=== PATIENT | female | born 1970 | race African-American/Black ===

== ENCOUNTER 2020-05-22 14:53 | Outpatient (CLI) | payer OTHER, SELFPAY ==
--- NOTE | ~2020-05-22 | MM_ITS ---
EXAMINATION: MM screening gaurav BI w zulma HISTORY: Screening mammogram, history of right breast cancer TECHNIQUE: Craniocaudal and mediolateral oblique 3-D tomosynthesis images were obtained and synthetic 2-D images were generated. CAD analysis was submitted and interpreted. COMPARISON: 02/01/2019, 01/25/2018, 01/19/2017 BREAST PARENCHYMAL COMPOSITION: There are scattered areas of fibroglandular density. FINDINGS: There are stable lumpectomy changes in the right breast. There is no evidence of suspicious mass, calcification, or architectural distortion to suggest malignancy in either breast. There has b een no suspicious interval change. IMPRESSION: 1. No mammographic evidence of malignancy. 2. Recommend routine screening mammography in one year. BI-RADS Category 2: Benign finding(s). Reviewed, dictated and finalized at location A. Y LAUNDERING INVESTIGATOR
== END 2020-05-22 14:54 | disposition home or self-care (01) ==
LOC: ANHIMG 14:56
PROVIDERS: PCP Physician Assistant; Visit Provider Physician Assistant
DX: Z12.31 Encounter for screening mammogram for malignant neoplasm of breast (principal)
CPT/HCPCS: 77063; 77067

== ENCOUNTER 2020-05-23 11:11 | Outpatient (CLI) | payer OTHER, SELFPAY ==
--- NOTE | ~2020-05-23 | US_ITS ---
EXAMINATION: US breast RT limited HISTORY: Pain in the upper outer quadrant and at the 6:00 location of the right breast. TECHNIQUE: Targeted right breast ultrasound is performed. COMPARISON: 08/27/2016 FINDINGS: There is no evidence of focal abnormal cystic or solid mass in the vicinity of the patient' s breast pain. Again noted are sonographic changes related to prior lumpectomy at the 10:00 location in the breast. IMPRESSION: No specific sonographic correlate is identified for the reported palpable abnormality of concern. Fur ther evaluation at this time should be based on clinical assessment. Continued follow-up physical exa mination is recommended. BI-RADS Category 2: Benign finding(s). Reviewed, dictated and finalized at location A. CE ASSISTANT IMPRESSION: No specific sonographic correlate is identified for the reported palpable abnor mality of concern. Further evaluation at this time should be based on clinical assessment. Continued follow-up physical examination is recommended. BI-RADS Category 2: Benign finding(s).
== END 2020-05-23 11:12 | disposition home or self-care (01) ==
LOC: ANHIMG 11:15
PROVIDERS: PCP Physician Assistant; Visit Provider Physician Assistant
DX: N64.4 Mastodynia (principal)
CPT/HCPCS: 76642

== ENCOUNTER 2021-02-18 10:00 | Outpatient (RCR) | payer OTHER, SELFPAY ==
[2021-02-12 13:54] VITALS: BP_SYST 140
--- NOTE | 2021-02-12 15:37 | PTOPEVAL ---
Thank you for referring Marilee Hallman to [facility].? The patient is scheduled to be seen for therapy? 2 x/week for 8 weeks. Please review, sign, date and return this plan of care KRISSY. I agree with and certify that the following plan of care is medically necessary. Referring Physician Date Attending Provider: Liliane De Oliveira, PA Diagnosis cervical radiculopathy Onset 2015 Additional Evaluation Detail Also c/o right shoulder and UE pain She has wears her garment for lymphedema. She uses her compression pump daily. Subjective Information C/o neck and right shoulder/UE Query Text:As Reported By Patient/ pain started after breast Family surgery. She has received previous therapy to address the symptoms. 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 C/o constant radiating numbness and tingling into right thumb and 1st finger. She has theraband for overhead press and bent over flys. Denies any stretches Previous Treatments Previous Treatments For This Problem 2018 Pain Assessment Right Shoulder(s) Reported Pain Level 0 Pain Description Aching Pain Frequency Intermittent Greatest Pain Intensity 6 Pain Aggravating Factors Exercise/Activity Right Posterior Neck Reported Pain Level 0 Pain Description Cramping,Tightness Pain Frequency Chronic,Intermittent Greatest Pain Intensity 9 Pain Aggravating Factors Exercise/Activity Cervical and Lumbar ROM Cervical ROM Cervical Flexion (0-60) 50:Active in Degrees Cervical Extension (0-70) 70:Active in Degrees Cervical Lateral Flexion Right (0-50) 30:Active in Degrees Cervical Lateral Flexion Left (0-50) 35:Active in Degrees Cervical Rotation Right (0-90) 55Active in Degrees Cervical Rotation Left (0-90) 50:Active in Degrees Cervical ROM Comments tightness with neck motions Upper Extremity Range of Motion Scapular/ Shoulder Range of Motion Right Shoulder Flexion - Active 85 Shoulder Flexion - Passive 135 Shoulder Extension - Active 48 Shoulder Abduction - Active 114 Shoulder Abduction - Passive 140 Shoulder Medial Rotation - Active 70 Shoulder Lateral Rotation - Active 75 Scapula
--- NOTE | 2021-02-16 11:28 | PCPTNOTE ---
Patient called & cancelled scheduled appointment this date, did not leave a reason.
--- NOTE | 2021-02-23 07:35 | PCPTNOTE ---
Patient called & cancelled scheduled appointment this date and appt on 02/25/21 due to sick and waiting on COVID results.
--- NOTE | 2021-03-02 09:41 | PCPTNOTE ---
Patient did not show up for scheduled appointment this date. Called pt who states she is still sick. She will contact her MD for new therapy order once she is medically ready. Will DC PT at this time.
--- NOTE | 2021-03-02 09:42 | PCPTNOTE ---
Admitting Provider: Attending Provider: Liliane De Oliveira, ALEXANDER Patient:Marilee Hallman Date of :1970 Physical Therapy Discharge Note Patient has not returned for any further treatments since 02/18/2021 with 4 missed therapy visits. Therefore she will be discharged at this time. She indicated she is not medically stable to attend therapy at this time. Patient?s initial visit was on 02/12/2021 14:00 and she had a total of 2 visits. visits. The goals have been not met at this time due to limited therapy visits. Thank you for referring this patient to [facility]. Please review, sign, date and return this discharge summary KRISSY. I have been updated about the patient's current status and I agree with discharge from the above service at this time. Referring Physician Date
== END 2021-03-02 16:36 | disposition home or self-care (01) ==
LOC: ANHPT 10:00
PROVIDERS: PCP Physician Assistant; Visit Provider Physician Assistant
DX: M54.12 Radiculopathy, cervical region (principal)
CPT/HCPCS: 97110; 97140; 97162

== ENCOUNTER 2021-06-20 08:29 | Outpatient (CLI) | payer OTHER, SELFPAY ==
--- NOTE | ~2021-06-20 | MM_ITS ---
EXAMINATION: MM screening gaurav BI w zulma HISTORY: Screening TECHNIQUE: Craniocaudal and mediolateral oblique 3-D tomosynthesis images were obtained and synthetic 2-D images were generated. CAD analysis was submitted and interpreted. COMPARISON: Comparison to multiple prior studies sequentially, with oldest reviewed study dated 07/2016. BREAST PARENCHYMAL COMPOSITION: There are scattered areas of fibroglandular density. FINDINGS: There is no evidence of suspicious mass, calcification, or architectural distortion to sugg est malignancy in either breast. There has been no suspicious interval change. IMPRESSION: 1. No mammographic evidence of malignancy. 2. Recommend routine screening mammography in one year. BI-RADS Category 1: Negative Reviewed, dictated and finalized at location A. OR SOLUTIONS CONSULTANT
== END 2021-06-20 08:30 | disposition home or self-care (01) ==
PROVIDERS: PCP Physician Assistant; Visit Provider Physician Assistant
DX: Z12.31 Encounter for screening mammogram for malignant neoplasm of breast (principal)
CPT/HCPCS: 77063; 77067

== ENCOUNTER 2022-01-07 07:30 | Outpatient (CLI) | payer OTHER, SELFPAY ==
--- NOTE | ~2022-01-07 | MR_ITS ---
EXAMINATION: MR shoulder RT wo con DATE: 01/07/2022 08:30 INDICATION: Right shoulder pain. TECHNIQUE: Magnetic resonance imaging (MRI) of the right shoulder was performed without intravenous c ontrast. Sequences included axial PD-weighted FS FSE, coronal oblique PD-weighted FS FSE and T2-weigh brina FS FSE, and sagittal oblique T2-weighted FS FSE and T1-weighted FSE. COMPARISON: Right shoulder radiographs 12/31/2021, MRI 07/06/2018 FINDINGS: Coracoacromial arch: The acromion undersurface is flat in morphology (type I). Acromioclavicular joint is normal. There is mild subacromial/subdeltoid bursitis. Rotator cuff: There is moderate supraspinatus tendinopathy and focal severe infraspinatus tendinopathy. Teres minor tendon is normal. There is moderate subscapularis tendinopathy. No tear. There is no asymmetric fatt y atrophy of the rotator cuff muscle bellies. Biceps tendon and glenoid labrum: Biceps tendon is in bicipital groove. There is mild intra-articular biceps tendinopathy. There is deg eneration of the superior labrum without well-defined tear. Fluid: There is no glenohumeral joint effusion. Bones/cartilage: Glenoid cartilage is normal. Humeral head cartilage is normal. IMPRESSION: 1. Severe rotator cuff tendinopathy. No tear. 2. Mild subacromial/subdeltoid bursitis. 3. Mild intra-articular biceps tendinopathy. Reviewed, dictated and finalized at location A.
== END 2022-01-07 07:31 | disposition home or self-care (01) ==
PROVIDERS: PCP Physician Assistant; Visit Provider Orthopaedic Surgery
DX: M75.51 Bursitis of right shoulder (principal); M75.21 Bicipital tendinitis, right shoulder
CPT/HCPCS: 73221

== ENCOUNTER 2024-11-29 15:02 | Outpatient (CLI) | payer OTHER, SELFPAY ==
--- OUTSIDE RECORDS SUMMARY | 2024-11-29 15:05 | XMS_ITS | Clinical Summary ---
Author Organization [facility] Address [address] [place] [address] Care Team Providers Care Strap Machine Operator Automatic Name Role Phone Liliane De Oliveira PA-C Primary Care Provider + Source Comments [facility],non-owned Affiliates and Associated Physician Practices is amultiple site organization consisting of ambulatory clinics and hospital sitesin [place], [place], [place] and [place]. This disclosure is being madepursuant to the Care Everywhere program and may not contain all information available regarding this patient. Last updated 18.[facility] Allergies No known active allergies Medications * Be aware that medications may not be up to date on this document. Alwaysverify current medications with the patient. tamoxifen (NOLVADEX) 20 MG tablet 06/24/2020 Active Family History Medical History Relation Name Comments Cancer - Breast Maternal Grandmother Cancer - Breast Sister 1 Cancer - Ovarian Sister 2 Relation Name Status Comments Maternal Grandmother Sister 1 Sister 2 Social History Tobacco Use Types Packs/Day Years Used Date Smoking Tobacco: Some Days Cigarettes Smokeless Tobacco: Never Tobacco Cessation:Ready to Q uit: No; Counseling Given: No Alcohol Use Standard Drinks/Week Comments Yes 4 (1 standard drink = 0.6 oz pur e alcohol) AUDIT-C Answer Date Recorded Q1: How often do you have a drink containing alc ohol? Monthly or less 06/30/2020 Q2: How many drinks containi ng alcohol do you have on a typical day when you are drinking? 1 or 2 06/30/2020 Q3: How often do you have si x or more drinks on one occasion? Never 06/30/2020 Comments Unknown Sex and Gender Information Value Date Recorded Sex Assigned at Not on file Legal Sex Female 5:54 PM HOTEL DIRECTOR Gender Identity Not on file Sexual Orientation Not on file Last Filed Vital Signs Vital Sign Reading Time Taken Comments Blood Pressure 124/77 06/30/2020 12:54 PM CDT Pulse 77 06/30/2020 12:54 PM CDT Temperature 36.1 C (97 F) 06/30/2020 12:54 PM CDT Respiratory Rate 18 06/30/2020 12:5 4 PM CDT Oxygen Saturation 98% 06/30/2020 12: 54 PM CDT Inhaled Oxygen Concentration - - Weight 81.6 kg (179 lb 12.8 oz) 021 12:54 PM CDT Height 170.2 cm (5' 7) 06/30/2020 12:5 4 PM CDT Body Mass Index 28.16 06/30/2020 12:54 PM CDT Plan of Treatment Health Maintenance Due Date Last Done Comments COLOGUARD (AGES 45-75) - COL ON CA SCREENING 1970 COLON MONITORING 1968 COLONOSCOPY - COLON CA SCREENING 1968 CT COLONOGRAPHY - COLON CA SCREENING 1970 Colorectal Cancer Screening 1970 FIT - COLON CA SCREENING 1968 FLEX SIG - COLON CA SCREENING 1968 LIPID TESTING 1970 MAMMOGRAM 1970 HIV SCREENING 10/01/1983 HEPATITIS C SCREENING 09/26/1986 DTAP/TDAP/TD VACCINES (1 - Tdap) 10/01/1987 HEPATITIS B VACCINE (1 of 3 - 19+ 3-dose series) 10/01/1987 PNEUMOCOCCAL VACCINE 50+ (1 of 2 - PCV) 10/01/1987 PAP SMEAR 1989 ZOSTER VACCINE (1 of 2) 2018 COVID-19 VACCINE (1 - 2023-2 5 season) 2023 DEPRESSION SCREENING 04/18/2024 INFLUENZA VACCINE (#1) 2024 HIB VACCINE Aged Out No longer eligi ble based on patient's age to complete this topic HPV VACCINE Aged Out No longer eligi ble based on patient's age to complete this topic MENINGOCOCCAL (Group B) VACC INE SHARED DECISION-MAKING Aged Out No longer eligibl e based on patient's age to complete this topic MENINGOCOCCAL GROUPS A/C/Y/W VACCINE Aged Out No longer eligible b ased on patient's age to complete this topic Insurance [facility] Care Address: [address] [address] Care Teams Strap Machine Operator Automatic Relationship Specialty Start Date End Date Liliane De Oliveira PA-C [address] [place] [address] [phone] PCP - General Physician Beauty Parlor Cleaner 06/30/20
--- OUTSIDE RECORDS SUMMARY | 2024-11-29 15:06 | XMS_ITS | Clinical Summary ---
Author Organization [facility] Address [facility] [place] [address] Care Team Providers Care Workforce Development Specialist Name Role Phone Mychart, Generic Provider Primary Care Provider Unavailable Allergies No known active allergies Medications tamoxifen (NOLVADEX) 20 mg tablet tamoxifen 20 mg tablet Active tamoxifen (NOLVADEX) 20 mg tablet TAKE 1 TABLET BY MOUTH EVERY DAY 90 Tablet 4 3 Active Active Problems Problem Noted Date Diagnosed Date Lymphedema 09/15/2018 Alcohol abuse 09/15/2018 SERM use (selective estrogen receptor modulator) 02/03/2018 Numbness and tingling of right arm 10/26/2017 Mastodynia 08/25/2017 Tobacco use 03/28/2017 Ductal carcinoma in situ (DCIS) of right breast 03/25/2016 Recurrent major depressive disorder, in partial remission 03/25/2016 Family History Medical History Relation Name Comments Heart Disease Brother 3 Diabetes Father Diabetes Mother Lung Cancer Mother Heart Disease Sister 1 Breast Cancer Sister 2 Cancer Sister 3 Cancer Sister 4 Relation Name Status Comments Brother 1 Brother 2 Alive Brother 3 Alive Brother 4 Father Mother Sister 1 Alive Sister 2 Alive Sister 3 Alive Sister 4 Social History Tobacco Use Types Packs/Day Years Used Date Smoking Tobacco: Former Cigarettes 1 30 0 07/15/1988 - 07/15/2018 Smokeless Tobacco: Never Tobacco Cessation:Counseling Given: No Alcohol Use Standard Drinks/Week Comments Yes 0 (1 standard drink = 0.6 oz pur e alcohol) occasional Comments No Sex and Gender Information Value Date Recorded Sex Assigned at Not on file Legal Sex Female 11:58 AM ASSOCIATE DOCTOR Gender Identity Not on file Sexual Orientation Not on file Last Filed Vital Signs Vital Sign Reading Time Taken Comments Blood Pressure 138/112 02/15/2019 10:18 AM CDT Pulse 107 02/15/2019 10:18 AM CDT Temperature 37.1 C (98.8 F) 02/15/2019 10:18 AM CDT Respiratory Rate 18 08/25/2017 3:08 PM CDT Oxygen Saturation 98% 02/15/2019 10:18 AM CDT Inhaled Oxygen Concentration - - Weight 73.6 kg (162 lb 3.2 oz) 02/15/2019 10:18 AM CDT Height 172.7 cm (5' 8) 02/15/2019 10:18 AM CDT Body Mass Index 24.66 02/15/2019 10:18 AM CDT Plan of Treatment Health Maintenance Due Date Last Done Comments DTAP/TDAP/TD VACCINES (1 - Tdap) 10/01/1987 HEPATITIS B VACCINES (1 of 3 - 19+ 3-dose series) 10/01/1987 HPV/Cotest (21-29) 1989 CERVICAL CANCER SCREENING 1998 HPV/Cotest (30-65) 1998 PAP SMEAR 1998 COLORECTAL SCREENING 2013 Colorectal Cancer Screening 2013 FIT-DNA Q 3 years 2013 FIT/FOBT Q 1 year 2013 Flex Sig/CT Colonography Q 5 years 2013 ZOSTER VACCINE (1 of 2) 2018 BREAST CANCER SCREENING 02/02/2020 02/02/20 19, 08/11/2017, 01/19/2017, Additional history exists INFLUENZA VACCINE (#1) 2024 Procedures Procedure Name Priority Date/Time Associated Diagnosis Comments MAMMO SCREEN BILAT W OR WO CAD Routine 02/01/2019 Breast cancer screening by mammogram from Last 3 Months or Most Recently Relevant to Health Maintenance Results * MAMMO SCREEN BILAT W OR WO CAD (02/01/2019) Anatomical Region Laterality Modality Breast Bilateral Mammography Valentina Lindsey DO MAMMO ORDERABLES Final Resu lt from Last 3 Months or Most Recently Relevant to Health Maintenance Insurance [employer] [place] Care Teams Workforce Development Specialist Relationship Specialty Start Date End Date Samy Borden Provider PCP - General 10/26/17
--- NOTE | 2024-11-29 15:11 | ECG_ITS ---
Test Date: 2024-11-29 15:20:43 Measurements Intervals [place] Rate: 70 P: 59 MD: 161 QRS: -3 QRSD: 85 T: 33 QT: 387 QTc: 420 Interpretive Statements SINUS RHYTHM POSSIBLE RIGHT VENTRICULAR CONDUCTION DELAY BASELINE ARTIFACT- I, II, III BORDERLINE ECG No previous ECG available for comparison Electronically Signed On 11-29-2024 16:05:07 CDT by Tomas Jimenez D.O.
== END 2024-11-29 15:03 | disposition home or self-care (01) ==
PROVIDERS: PCP Emergency Medicine; Visit Provider Orthopaedic Surgery
DX: F17.210 Nicotine dependence, cigarettes, uncomplicated (principal); I45.9 Conduction disorder, unspecified
CPT/HCPCS: 93005

== ENCOUNTER 2024-12-06 03:21 | Day surgery (SDC) | payer MEDICARE, MEDICAID, SELFPAY ==
[2024-11-28 10:10] VITALS: BMI 29.4
--- NOTE | 2024-11-28 10:12 | PC.NURSE ---
Report to the Outpatient Waiting Room, entrance under the green pavilion located off [facility], at time _0600_ on date _[id number]_. Planned Procedure Time: 0730_.? Time changes happen often and if your time is changed the preop area will call you the afternoon before. - You and your visitor will be asked to self-screen and do not enter if you have any COVID symptoms. Please call surgeon if you need to reschedule. - A mask is optional within the hospital at this time. Patients may have clear liquids (water, carbonated beverages, clear teas, apple juice) until 3 hours prior to surgery with a maximum of 20 ounces. - No food from midnight until time of surgery and no smoking, or chewing tobacco (or any form of nicotine). No chewing gum, candy or mints. Take only the following medications with a SIP of water on the morning of surgery: ___Oxycodone if needed.____ DO NOT STOP ANY OF YOUR OTHER PRESCRIPTION MEDICATIONS PRIOR TO SURGERY EXCEPT THE FOLLOWING Hold all vitamins and supplements for 3 days per anesthesiologist. Medications to discontinue per physician Patient has stopped all her other medications already. Date to take last dose Please no make-up, nail persian, hairspray, perfume, deodorant, or body powder the day of surgery.? No jewelry (including any body piercings) or valuables the day of surgery, leave them at home.? Please take a shower or bath the night before, or the morning of, surgery with an antibacterial soap.? Wear comfortable, loose fitting clothing.? - Jewelry must be removed prior to entering the operating room.? Rings and piercings that are not removed may be cut off. - The hospital will not accept responsibility for valuables.? - Please leave all valuables, including medications, at home the day of surgery. If you are going home after surgery, a licensed bicycle taxi driver must drive you home.? - NO public transportation without another adult if you receive anesthesia. - We recommend that an adult stay with you for 24 hours following discharge. - We also recommend that you do not drive, make important decision, drink alcoholic beverages, or take any drugs that were not prescribed by your health care provider for at least 24 hours after your discharge time. Follow any additional instructions given to you from your surgeon. Telephone instructions given to __Marilee__and asked if any additional questions and then verbalized understanding. Patient advised to call surgeon office or pre surgery nurse liaison [phone] if any additional questions.
--- NOTE | 2024-11-28 10:25 | PC.NURSE ---
Patient tells me she's supposed to be off this ankle for 8 weeks. Also has a lot of trouble with right arm. Patient will not be able to use crutches or a walker. I called Dr Falk's office and suggested patient may be a candidate for a Wheel chair at home. Will leave this to Dr Falk to determine.
--- NOTE | 2024-12-04 13:05 | PM.IMHP ---
H&P: HPI History of Present Illness Date/Time: 12/04/24 13:05 Chief Complaint: left foot pain and deformity Narrative: 54-year-old woman with left foot and ankle pain and progressive deformity. Loss of arch height. Difficulty with ambulation and daily activity. Has failed treatment with cortisone injection, therapy, bracing, fracture boot and activity modification. Review of Systems Constitutional: Constitutional: Denies fever(s) Eyes: Eyes: Denies blurry vision ENT: Reports Normal hearing present Cardiovascular: Cardiovascular: Denies chest pain and Denies dyspnea Respiratory: Respiratory: Denies dyspnea and Denies wheezing Gastrointestinal: Gastrointestinal: Denies abdominal pain Genitourinary: Genitourinary: Denies urinary urgency Musculoskeletal: Musculoskeletal: Reports as per HPI and Denies numbness Integumentary/Breasts: Skin/Breast: Denies changing lesions and Denies sores Neurologic: Reports Normal hearing present, Denies behavioral changes, Denies confusion, Denies numbness and Denies convulsions Psychiatric: Psychiatric: Denies behavioral changes, Denies confusion and Denies hallucinations Endocrine: Endocrine: Denies heat intolerance Hematologic/Lymphatic: Hematologic/Lymphatic: Denies easy bleeding Allergic/Immunologic: Allergic/Immunologic: Denies wheezing [facility] Past Medical History Medical History (Updated 10/09/24 @ 16:13 by DOMINGO Davies) Breast cancer Smoking history Arthritis of ankle, left, degenerative Peroneal tendonitis of left lower extremity Posterior tibial tendon dysfunction (PTTD) of left lower extremity Right shoulder pain Family History Family History Other Diabetes mellitus Family history of alcoholism Family history of arthritis Family history of malignant neoplasm Hypertension Social History Social History Smoking packs per day: 1 Smoking cigarettes per day: 20.0 Years smoked: 20 Smoking pack-years: 20.00 Smoking status: Former smoker Tobacco type: cigarettes Smoking end date: 11/16/24 Alcohol intake: current Substance use: never Substance use type: marijuana Other substance usage details: a couple times a week. Living arrangements: with family Gender identity (if verbalized by the patient): Female Spiritual care concerns: No Meds Home Medications and Allergies Home Medications ?Medication ?Instructions ?Recorded ?Confirmed ?Type tamoxifen 20 mg tablet 20 mg PO DAILY 11/06/24 08/13/25 History calcium 600 mg (as 1 tablet PO BID 11/28/24 11/28/24 History carbonate)-vitamin D3 10 mcg (400 unit) tablet oxycodone-acetaminophen 5 mg-325 1 tablet PO Q8H PRN pain 11/28/24 11/28/24 History mg tablet tolterodine 2 mg tablet 2 mg PO HS 11/28/24 11/28/24 History Allergies Allergy/AdvReac Type Severity Reaction Status Date / Time No Known Allergies Allergy Verified 11/28/24 09:53 Exam Const: General: healthy appearing; No in distress or confusion Orientation/consciousness: oriented to person, oriented to place, oriented to time and No confusion HENMT: Head: normal to inspection, normocephalic and atraumatic Eyes: Conjunctivae: conjunctivae normal Sclera: sclerae normal Neck: Neck: supple and nontender Resp: Effort & Inspection: normal respiratory effort and no audible wheezes Cardio: Rate: regular rate Rhythm: regular rhythm Skin: General skin exam: no rashes or lesions noted Neuro: General: oriented to person, oriented to place, oriented to time and No confusion Extrem: Right upper extremity: normal to inspection Left upper extremity: normal to inspection Right lower extremity: normal capillary refill, ankle Details: tenderness Location: of the medial malleolus, swelling Details: medially and abnormal ROM Details: pain with active ROM Details: with inversion and with range as follows ( ankle dorsiflexion -5 degrees, plantar flexion 40?, inversion 10?, eversion 20?) and foot Details: abnormal to inspection (Moderate flexible flatfoot deformity with standing, moderate heel valgus), tenderness Location: of the mid foot ( medial naviculum), toes with normal ROM, vascular exam Details: normal capillary refill and motor-sensory exam Details: light-touch normal Left lower extremity: ankle Details: tenderness Location: of the medial malleolus; not of the achilles tendon, swelling (mild anterior and anterolateral ) and normal ROM (dorsiflexion 0, planter flexion 40, inversion 15, eversion 15 ) and foot Details: tenderness ( ) Location: of the medial foot (Posterior tibial tendon, medial naviculum) and of the mid foot, toes with normal ROM, edema (mild lateral hindfoot ), vascular exam (2+ dorsalis pedis pulse) Details: dorsalis pedis pulse present, posterior tibial pulse present and normal capillary refill and motor-sensory exam (strength 5/5 except peroneal 4/5 . Light touch sensation intact ) light-touch normal; no ecchymosis Psych: Affect: normal affect Assessment and Plan Assessment and plan (1) Posterior tibial tendon dysfunction (PTTD) of left lower extremity: Code(s): M76.822 - Posterior tibial tendinitis, left leg Status: Acute Assessment and Plan: Previous MRI revealed inflammation of the posterior tibial tendon, peroneal tendon ankle joint. Radiographs show progression of pes planus and degenerative changes. Discussed condition, nature, etiology and course of natural history. Conservative and operative treatment options reviewed as well the risks and benefits of each. Discussed conservative treatment recommendations with a custom Ingrid brace. Discussed surgical intervention with a posterior tibial tendon and flatfoot reconstruction. After thorough discussion, patient would like to proceed with surgical intervention. Discussed nonoperative and operative treatment options with the patient. Risks and benefits of each as well as alternatives were reviewed. All of the patient's questions were answered. The risks of surgery reviewed including but not limited to: Neurovascular damage, wound complication, infection, blood clot, pulmonary embolus, stroke, myocardial infarction, and anesthetic risks up to and including . Continued pain and possible dysfunction were explained. Specific risks of the procedure including later recurrence of deformity. No guarantees were offered. If hardware used, discussed risk of failure/ breakage and possible need for removal. If complications occur, the patient understands the need for further treatment, possible further surgery. Patient verbalizes understanding and wishes to proceed. Plan: Left posterior tibial tendon reconstruction with flexor digitorum tendon transfer, posterior calcaneal osteotomy, anterior calcaneal osteotomy, cuneiform osteotomy, spring ligament reconstruction, Achilles tendon lengthening. (2) Arthritis of ankle, left, degenerative: Qualifiers: Osteoarthritis type: primary Qualified Code(s): M19.072 - Primary osteoarthritis, left ankle and foot Code(s): M19.072 - Primary osteoarthritis, left ankle and foot Status: Acute
[2024-12-06] VITALS (10 sets, daily range): BP systolic 110–148; BP diastolic 51–83; PULSE 67–94; RESP 14–16; TEMP 36.6–36.9; O2SAT 92–100; BMI 28.2
--- NOTE | ~2024-12-06 | XR_ITS ---
EXAMINATION: XR surgery orthopedic DATE: 12/06/2024 09:46 INDICATION: Left tibial tendon reconstruction TECHNIQUE: 4 fluoroscopic images of the left ankle, mid and hindfoot were obtained during procedure performed by Dr. Yeh. Radiologist was not present for the imaging or procedure. The amount of fluoroscopy time used during this procedure was 0.3 minutes. Total DAP was 0.149 Gycm^2. COMPARISON: None. FINDINGS: Interval realignment osteotomy across the posterior calcaneus which is fixed with a pair of cannulated lag screws. Additional osteotomy extending transversely across the medial cuneiform with dorsal staple fixation. Expected small amount of soft tissue gas at the operative bed including inferior to the medial malleolus along the course of the posterior tibial tendon. There is a lucency at the medial aspect of the navicula which could represent an anchor site for tibial tendon repair. No fracture. Mild osteoarthritis at the second and third tarsal metatarsal joints. IMPRESSION: 1. Postoperative changes in the left mid and hindfoot as detailed above. See procedure note for further detail. Reviewed, dictated and finalized at location A. IMPRESSION: 1. Postoperative changes in the left mid and hindfoot as detailed above. See pr ocedure note for further detail.
--- OUTSIDE RECORDS SUMMARY | 2024-12-06 03:24 | XMS_ITS | Clinical Summary ---
Author Organization [facility] Address 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
--- OUTSIDE RECORDS SUMMARY | 2024-12-06 03:24 | XMS_ITS | Clinical Summary ---
Author Organization [facility] Address [address] [place] [address] Care Team Providers Care County Surveyor Name Role Phone Liliane De Oliveira PA-C Primary Care Provider + Source Comments [facility],non-owned Affiliates and Associated Physician Practices is amultiple site organization consisting of ambulatory clinics and hospital sitesin [place], [place], [place] and [place]. This disclosure is being madepursuant to the Care Everywhere program and may not contain all information available regarding this patient. 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
[2024-12-06] MEDS: LACTATED RINGERS 1,000 ML 30 ML IV CONT ×2 (07:00→10:15)
--- NOTE | 2024-12-06 07:00 | WPDANESEPPF ---
Anes - Initial Pre Proc Eval Procedure: Operation Date: 12/06/24 07:30 Proposed Procedures p Left Posterior Tibial Tendon Reconstruction with Flexor Digitorum Tendon Transfer, Posterior Calcaneal Osteotomy, Anterior Calcaneal Osteotomy, Cuneiform Osteotomy, Spring Ligament Reconstruction,, - Calvin Falk MD s Achilles Tendon Lengthening - Calvin Falk MD Date/Time: 12/06/24 07:00 Surgeon: Calvin Falk MD Pre Op Diagnosis: left posterior tibial tendon dysfunction,flat foot Patient Data Age: 54 Gender: F Height: 1.73 m Weight: 87.7 kg Allergies Allergy/AdvReac Type Severity Reaction Status Date / Time No Known Allergies Allergy Verified 12/06/24 07:21 Home Medications ?Medication ?Instructions ?Recorded ?Confirmed ?Type tamoxifen 20 mg tablet 20 mg PO DAILY 02/22/24 11/28/24 History calcium 600 mg (as 1 tablet PO BID 11/28/24 11/28/24 History carbonate)-vitamin D3 10 mcg (400 unit) tablet oxycodone-acetaminophen 5 mg-325 1 tablet PO Q8H PRN pain 11/28/24 12/06/24 History mg tablet tolterodine 2 mg tablet 2 mg PO HS 11/28/24 11/28/24 History Patient hx anesthesia problems: none Family hx anesthesia problems: none Results Review: All pre-operative results and documents have been reviewed as part of the pre-operative evaluation. [facility] Past Medical History Medical History (Updated 12/05/24 @ 14:10 by Steven Andujar DO) Chronic, continuous use of opioids PTSD (post-traumatic stress disorder) Breast cancer Smoking history Arthritis of ankle, left, degenerative Peroneal tendonitis of left lower extremity Posterior tibial tendon dysfunction (PTTD) of left lower extremity Right shoulder pain Family History Family History Other Diabetes mellitus Family history of alcoholism Family history of arthritis Family history of malignant neoplasm Hypertension Social History Social History Smoking packs per day: 1 Smoking cigarettes per day: 20.0 Years smoked: 20 Smoking pack-years: 20.00 Smoking status: Former smoker Tobacco type: cigarettes Smoking end date: 04/18/13 Alcohol intake: current Substance use: never Substance use type: marijuana Other substance usage details: a couple times a week. Living arrangements: with family Gender identity (if verbalized by the patient): Female Spiritual care concerns: No Anes - Eval Final PreProcedure Day of Procedure 12/06/24 07:00 Patient weight: overweight Heart: regular rate and rhythm Lungs: clear to auscultation Airway: Mallampati scale class II Neurological: alert and oriented Last oral intake: >/= 8 hours ASA classification: III Emergent: no Anesthetic plan: proceed Anesthesia type and monitoring: general LMA and standard monitoring Results Review: All pre-operative results and documents have been reviewed as part of the pre-operative evaluation. Informed Consent: The patient's anesthetic plan and its attendant risks and benefits were discussed with the patient/family/POA. Questions were solicited and answers provided to the satisfaction of the patient/family/POA.
[2024-12-06] MEDS: KETOROLAC 15 MG/ML VIAL (*BKC) IV PUSH (07:05)
[2024-12-06] MEDS: ACETAMINOPHEN 500 MG TABLET 1000 MG PO (07:05)
--- NOTE | 2024-12-06 07:20 | WPDHPUPDATE1 ---
History and Physical Update Update Date/Time: 12/06/24 07:20 History and Physical has been reviewed, including an updated exam of the patient. There are NO changes in the patient's condition. Risks, benefits, and alternatives have been discussed and questions answered. Patient agrees to proceed with procedure.
[2024-12-06] MEDS: ceFAZolin 2 GM in SODIUM CHLORIDE 0.9% IV 50 ML 100 ML IVPB (07:38)
--- NOTE | 2024-12-06 07:40 | WPDANESPNB ---
Anes - Peripheral Nerve Block Date/Time: 12/06/24 07:40 I have discussed with the patient/family/POA the placement of a peripheral nerve block for post-operative pain management, including associated risks, benefits, complications, and side effects. Alternative methods of post-operative analgesia were detailed. Questions were solicited and answers provided to the satisfaction of the patient/family/POA. Time-Out: A pre-procedural Time-Out was completed immediately before starting the procedure and confirmed: Patient Identification, Site, Procedure, Patient Position and the Availability of Requisite Equipment. Clinical Indications: Acute post-operative pain management requested by the operative surgeon. Nerve Block Insertion Note Anes-nerve block: posterior fossa sciatic left and adductor canal left Patient position: supine (for adductor canal) and other (right lateral for popliteal) Skin prep: chlorhexidine Needle: 22 gauge, stimulating, insulated echogenic needle. Needle length: 80 mm Technique: nerve stimulation lost at (mA) (for popliteal lost at 0.2) and ultrasound Injectate: bupivacaine 0.5% with epi 5 mcg/ml (20 mL for popliteal, 10 mL for adductor canal (no epi)) Observations: tolerated well Complications: none Procedure start time:: 729 Procedure end time:: 736
--- NOTE | 2024-12-06 10:32 | W.PM.PROC2 ---
Procedure Note - Detailed Date of Procedure 12/06/24 Pre-op Diagnosis left posterior tibial tendon dysfunction,flat foot, heel valgus, deltoid spring ligament rupture, forefoot abduction Post-op Diagnosis Same Procedure Performed Left posterior tibial tendon reconstruction with flexor digitorum transfer, deltoid spring ligament reconstruction, calcaneal osteotomy, cuneiform osteotomy, Achilles lengthening. Surgeon Calvin Falk MD Shank Cutter 1st blood bank assistant Anesthesia General Indications 54-year-old with progressive flatfoot deformity and pain on the left side. Has failed conservative treatment with injections, bracing, therapy. Difficulty with daily activity and weight-bearing. Presents for operative treatment. Findings Complete rupture of the posterior tibial tendon. Rupture of the spring portion of the deltoid ligament. Description of Procedure Patient identified in the preoperative holding. Informed consent given. Operative extremity marked. Patient received intravenous antibiotics. Patient brought to the operating room where underwent general anesthetic by anesthesia team. Positioned supine on operating room table. Time-out performed confirming the patient, site of the surgery and the plan. Left lower extremity prepped and draped usual sterile surgical fashion using ChloraPrep skin solution. Foot and Ankle exsanguinated and thigh tourniquet inflated to 250 mmHg. Calcaneus addressed 1st. Oblique incision over the lateral posterior calcaneus with 15 blade knife. Hemostasis controlled electrocautery. Image intensification used to guide the osteotomy which was made from lateral to medial. The medial side was completed with osteotomes. Posterior calcaneus was then translated medially proximally 12 mm and provisionally pinned. Checked with image intensification and fixation with 4.5 mm partially-threaded cannulated screws x2. Good fixation noted. Image intensification confirmed alignment. Wound irrigated soft tissue closed with 3-0 Monocryl interrupted suture and skin with 4-0 nylon running suture. The screw holes were closed with 4-0 nylon. Achilles then addressed. With the ankle in maximum dorsiflexion percutaneous Achilles lengthening performed with a 15 blade knife with 2 incisions. Ankle dorsiflexion improvement noted. Wounds irrigated and closed with 4-0 nylon interrupted suture. There was significant forefoot varus and abduction. Cuneiform osteotomy then performed fair dorsal longitudinal incision made with a 15 blade knife over the medial cuneiform. Hemostasis control extra Michelle. The sensory elements were protected and dissection carried down to the dorsal aspect of the cuneiform. A transverse osteotomy made in the midportion from dorsal to plantar. The plantar cortex was left intact. Opening wedge was not performed and measured. As 6.5 mm x 16 mm graft was then placed into the opening osteotomy and checked with image intensification. Fixation achieved with 11 mm staple. Wound irrigated and closed with 3-0 Monocryl interrupted suture and 4-0 nylon running suture. Medial aspect then addressed. Then curvy linear incision made over the medial malleolus extending to the navicular with 15 blade knife. Hemostasis control extra cautery. Posterior tibial tendon sheath was incised in line with the skin incision. Posterior tibial tendon was noted to be completely ruptured at the medial malleolar level. Distal aspect was excised. Flexor digitorum was found deep to this in and followed distally. This was released distally and transferred through a 5 mm drill hole in the medial navicular tuberosity and sutured back onto itself. Wounds irrigated the sheath was closed with 0 Vicryl interrupted suture. Spring ligament then addressed. A drill hole was placed into the sustained tachy alone on the medial aspect with a 3.5 mm drill. This was verified with image intensification. The substitute ligament material was then anchored into the drill hole with a 3.75 mm PushLock anchor. This left 2 limbs which then placed through the medial navicula with the foot in a corrected position and secured with 8 X 5 mm bio tenodesis screw. Image intensification was used to confirm alignment of the hindfoot, midfoot and forefoot. The osteotomies were noted to be in good alignment and fixation in good position. Wounds thoroughly irrigated and closed with 2-0 Vicryl interrupted suture 3-0 Monocryl interrupted suture with 4-0 nylon running suture for the skin. Tourniquet released. Sterile dressing applied. The patient was then woken from anesthesia, extubated and taken to the recovery room in stable condition. All sponge, needle, instrument counts were correct at the end of the case. Implants 4.5 mm cannulated screw x2 Arthrex. 5 x 8 mm interference screw. 11 x 10mm staple. Estimated Blood Loss 20 Tourniquet Time Total Tourniquet Time: 105 Drains No Packing No Pathology None sent Complications None Condition Stable Disposition PACU [facility] Billing Surgery - Charge Forward: Surgery Billing ([id number], [id number], [id number], [id number], [id number])
== END 2024-12-06 12:28 | disposition home or self-care (01) ==
PROVIDERS: PCP Emergency Medicine; Visit Provider Orthopaedic Surgery
PROC: (CPT 28750; principal; 2024-12-06 07:30)
PROC: (CPT 27650; 2024-12-06 07:30)
DX: M76.822 Posterior tibial tendinitis, left leg (principal); M19.072 Primary osteoarthritis, left ankle and foot; G89.18 Other acute postprocedural pain; F43.10 Post-traumatic stress disorder, unspecified; F12.90 Cannabis use, unspecified, uncomplicated; Z79.810 Long term (current) use of selective estrogen receptor modulators (SERMs); Z79.891 Long term (current) use of opiate analgesic; Z87.891 Personal history of nicotine dependence; Z85.3 Personal history of malignant neoplasm of breast; Z80.9 Family history of malignant neoplasm, unspecified
CPT/HCPCS: 64448; 64447; 28300; 27691; 27698; 28304; 99199; J0690; A9270; C1713; C1769; J1100; J1171; J1885; J2250; J2371; J2405; J2704; J3010; J7120